=== PATIENT | female | born 1975 | race African-American/Black ===

== ENCOUNTER → 2016-06-26 | Outpatient (CLI) | payer BC ==
--- NOTE | ~2016-06-26 | MY11 ---
[facility] A Service of [facility] RADIOLOGY TEXT RESULTS PATIENT: ROCHELLE MACKENZIE LOCATION: [facility] : 75 UNIT #: [id number] AGE: [address]: Meek Pete MD SEX: F ORDER DR: [id number] [facility] 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 Ordering Physician: Meek Pete M.D. Primary Care Physician: Meek Pete M.D. MEDICAL IMAGING REPORT This report is preliminary unless electronic signature is present EXAM Bilateral digital screening mammogram with CAD, 06/26/2016. INDICATION 40-year-old female for routine screening. No reported problems. No personal history of breast cancer. Family history positive in the patient's grandmother. No surgeries. TECHNIQUE CC and MLO views of the breasts were obtained and reviewed with an FDA-approved CAD device. COMPARISON STUDIES This is her baseline study. There are no comparisons. FINDINGS Breast parenchyma is composed of scattered fibroglandular densities. The pattern is symmetric. There is no dominant nodule, mass, or suspicious clustered microcalcifications. IMPRESSION Negative baseline screening mammogram. 1 year followup recommended. Patients over the age of 40 are entered into a reminder system with target due date for the next mammogram. A result letter will also be sent to the patient. BIRADS: 1 Negative Dictated by... Sukhjinder Jhaveri M.D. [facility] A Service [facility] RADIOLOGY TEXT RESULTS PATIENT: ROCHELLE MACKENZIE LOCATION: [facility] : 75 UNIT #: [id number] AGE: [address]: Meek Pete MD SEX: F ORDER DR: THIS IS AN ELECTRONICALLY VERIFIED REPORT Sukhjinder Jhaveri M.D. at 06/26/2016 4:13 PM KAMLA/micaela TD: 06/26/2016 15:16 JOB #: [id number] MEDICAL IMAGING REPORT COPY
== END | disposition home or self-care (01) ==
LOC: CWCC 10:09
DX: Z12.31 Encounter for screening mammogram for malignant neoplasm of breast (principal); Z80.3 Family history of malignant neoplasm of breast
CPT/HCPCS: G0202